=== PATIENT | male | born 1985 | race Caucasian/White ===

== ENCOUNTER 2023-10-12 18:09 | Emergency (ER) | payer SELFPAY ==
[2023-10-12] MEDS: Tetracaine HCl/PF 0.5% 4 ML Bottle EYERT STA (18:51)
[2023-10-12] MEDS: Ciprofloxacin 0.3% Ophth Soln 2.5 ML Bottle EYERT STA (20:09)
== END 2023-10-12 20:17 | disposition home or self-care (01) ==
LOC: MW.ED 18:09
DX: S05.01XA Injury of conjunctiva and corneal abrasion without foreign body, right eye, initial encounter (principal); H10.211 Acute toxic conjunctivitis, right eye; F17.210 Nicotine dependence, cigarettes, uncomplicated; Z75.8 Other problems related to medical facilities and other health care; X58.XXXA Exposure to other specified factors, initial encounter
CPT/HCPCS: 99283; A9270; J3490

== ENCOUNTER 2023-11-30 05:31 | Emergency (ER) | payer MEDICAID ==
[2023-11-30 06:15] LABS: BASOPHILS ABSOLUTE AUTO 0.05 K/uL (0.00-0.20); BASOPHILS PERCENT AUTO 0.5 % (0.0-1.0); EOSINOPHILS ABSOLUTE AUTO 0.34 K/uL (0.00-0.45); EOSINOPHILS PERCENT AUTO 3.7 % (0.0-6.0); HEMATOCRIT 43.5 % (42.0-52.0); IMMATURE GRAN ABSOLUTE AUTO 0.02 K/uL (0.00-0.05); IMMATURE GRAN PERCENT AUTO 0.2 % (0.0-0.4); LYMPHOCYTES ABSOLUTE AUTO 2.71 K/uL (1.00-4.80); LYMPHOCYTES PERCENT AUTO 29.7 % (24.0-44.0); MEAN CORPUSCULAR HEMOGLOBIN 32.3 pg (28.0-32.0); MEAN CORPUSCULAR HGB CONC 34.5 g/dL (32.0-36.0); MEAN CORPUSCULAR VOLUME 93.8 fL (83.0-99.0); MEAN PLATELET VOLUME 8.8 fL (9.4-12.4); MONOCYTES ABSOLUTE AUTO 0.74 K/uL (0.00-0.80); MONOCYTES PERCENT AUTO 8.1 % (0.0-8.0); NEUTROPHILS ABSOLUTE AUTO 5.26 K/uL (1.80-7.70); NEUTROPHILS PERCENT AUTO 57.8 % (41.0-71.0); PLATELET COUNT,PLT 264 K/uL (150-400); RED BLOOD CELL COUNT 4.64 M/uL (4.52-5.90); WHITE BLOOD CELL COUNT,WBC 9.12 K/uL (3.9-11.3)
[2023-11-30 06:28] LABS: INR 1.01 (0.86-1.11)
[2023-11-30] MEDS: Iopamidol 755 MG/ML 500 ML Multipack Bottle IVPUSH STA (06:30)
[2023-11-30 06:39] LABS: A/G RATIO 1.2 (0.9-1.6); ALANINE AMINOTRANSFERASE,ALT 25 IU/L (14-63); ALBUMIN 3.9 g/dL (3.4-5.0); ALKALINE PHOSPHATASE 65 U/L (46-116); ASPARTATE AMNIOTRANSFERASE,AST 23 IU/L (15-37); BILIRUBIN TOTAL 0.5 mg/dL (0.2-1.0); BLOOD UREA NITROGEN,BUN 16 mg/dL (7.0-18.0); CHLORIDE,CL 103 mmol/L (98-107); CREATININE 0.8 mg/dL (0.8-1.3); EST CRCL DRUG DOSING (CG) 155.22 mL/min; ETHANOL BLOOD MEDICAL <3 mg/dL; GLUCOSE RANDOM 115 mg/dL (74-106); POTASSIUM,K 3.7 mmol/L (3.5-5.1); PROTEIN TOTAL,TP 7.1 g/dL (6.4-8.2); SODIUM,NA 140 mmol/L (136-148)
[2023-11-30] MEDS: Sodium Chloride 0.9% 2.5 ML Syringe FLUSH PRN (06:40)
[2023-11-30] MEDS: Sodium Chloride 0.9% 10 ML Syringe FLUSH PRN (06:40)
[2023-11-30 06:41] LABS: ESTIMATED GFR 117 mL/min (>60)
[2023-11-30] MEDS ORDERED: Aspirin 325 MG Tab.EC PO ONE (08:25)
[2023-11-30] MEDS: Aspirin 81 MG Tab.Chew PO ONE (08:41)
== END 2023-11-30 08:35 | disposition home or self-care (01) ==
LOC: MW.ED 05:31
DX: R20.2 Paresthesia of skin (principal); F17.210 Nicotine dependence, cigarettes, uncomplicated; Z86.79 Personal history of other diseases of the circulatory system
CPT/HCPCS: 36415; 70450; 70496; 70498; 71045; 80053; 80307; 82947; 85025; 85610; 93005; 99284; A9270; J3490; Q9967

== ENCOUNTER 2024-04-13 13:23 | Emergency (ER) | payer SELFPAY ==
[2024-04-13] MEDS: Lidocaine 2% Viscous Solution 15 ML UD PO ONE (16:16)
[2024-04-13] MEDS: Benzocaine 20% Topical Spray UD MUCMEM ONE (16:16)
[2024-04-13] MEDS: Lidocaine 2% 11 ML Jelly Filled Syringe MUCMEM ONE (16:19)
== END 2024-04-13 16:20 | disposition left against medical advice (07) ==
LOC: MW.ED 13:23
DX: K08.89 Other specified disorders of teeth and supporting structures (principal); T39.1X1A Poisoning by 4-Aminophenol derivatives, accidental (unintentional), initial encounter; F17.210 Nicotine dependence, cigarettes, uncomplicated; Z88.1 Allergy status to other antibiotic agents; Z75.8 Other problems related to medical facilities and other health care
CPT/HCPCS: 99283; A9270